=== PATIENT | female | born 1990 | race African-American/Black ===

== ENCOUNTER 2017-08-14 21:11 | Emergency (ER) | payer OTHER ==
--- NOTE | 2017-08-14 21:38 | PDOC ---
Rapid Medical Evaluation Time Seen by Provider: 08/14/17 21:35 Medical Evaluation: Allergies Allergy/AdvReac Type Severity Reaction Status Date / Time azithromycin [From Zithromax] Allergy Severe Hives, Verified 10/19/15 02:06 anaphalyxis promethazine HCl Allergy Severe Verified 10/19/15 02:06 [From Phenergan] meperidine [Meperidine] Allergy Intermediate Itching Verified 10/19/15 02:06 amoxicillin Allergy Verified 10/19/15 02:06 08/14/17 21:35 27 year old female with HTN presenting with cough, congestion, and chest pain today. Reports temp 100.7 earlier today, took Tylenol PM. V/s unremarkable. -Rapid flu -To FT for further evaluation
[2017-08-14 21:47] VITALS: BP 120/73; PULSE 91; TEMP 99.4; BMI 24.3
[2017-08-14] MEDS ORDERED: ACETAMINOPHEN 325 MG TABLET (FP) PO ONE (21:56)
--- NOTE | 2017-08-14 21:56 | PDOC ---
History of Present Illness - General Chief Complaint: Cold Symptoms Stated Complaint: CHEST PAIN/BACK PAIN Time Seen by Provider: 08/14/17 21:35 History Source: Patient - History of Present Illness Timing/Duration: reports: yesterday Associated Symptoms: reports: chest pain/soreness, cough, fever/chills, headache , muscle aches, nasal congestion, nasal drainage. denies: earache, facial pain , shortness of breath, sore throat, wheezing Past History - Past Medical History Allergies/Adverse Reactions: Allergies Allergy/AdvReac Type Severity Reaction Status Date / Time azithromycin [From Zithromax] Allergy Severe Hives, Verified 08/14/17 21:38 anaphalyxis promethazine HCl Allergy Severe Verified 08/14/17 21:38 [From Phenergan] meperidine [Meperidine] Allergy Intermediate Itching Verified 08/14/17 21:38 amoxicillin Allergy Verified 08/14/17 21:38 Home Medications: Ambulatory Orders Oseltamivir Phosphate [Tamiflu] 75 mg PO BID #10 capsule 08/14/17 Asthma: No Cancer: No Cardiac Disorders: No COPD: No Diabetes: No HTN: Yes Seizures: No Thyroid Disease: No - Reproductive History (#): 3 Para: 1 Cervical CA: No Dysfunctional Uterine Bleeding: No Ectopic : No Endometrial CA: No Polycystic Ovaries: No Therapeutic (s) & number: Yes (1) Tubal Ligation: No Spontaneous : 1 - Immunization History Immunization Up to Date: Yes - Suicide/Smoking/Psychosocial Hx Smoking Status: No Smoking History: Never smoked Years of Tobacco Use: 0 Have you smoked in the past 12 months: No Number of Cigarettes Smoked Daily: 0 Cigars Per Day: 0 Information on smoking cessation initiated: No Hx Alcohol Use: No Drug/Substance Use Hx: No Substance Use Type: None Hx Substance Use Treatment: No Review of Systems - Review of Systems Constitutional: Yes: Chills, Fever, Malaise HEENTM: No: Ear Pain, Throat Pain Respiratory: Yes: Cough. No: Shortness of Breath, Wheezing *Physical Exam - Vital Signs Last Vital Signs Temp Pulse Resp BP Pulse Ox 99.4 F 91 H 20 120/73 100 08/14/17 21:38 08/14/17 21:38 08/14/17 21:38 08/14/17 21:38 08/14/17 21:38 - Physical Exam General Appearance: Yes: Appropriately Dressed. No: Apparent Distress HEENT: positive: Normal Voice, TMs Normal, Pharynx Normal, Nasal Congestion Neck: positive: Supple. negative: Lymphadenopathy (R), Lymphadenopathy (L) Respiratory/Chest: positive: Lungs Clear, Normal Breath Sounds. negative: Respiratory Distress Cardiovascular: positive: Regular Rate, S1, S2 Gastrointestinal/Abdominal: positive: Soft. negative: Tender Integumentary: positive: Dry, Warm Neurologic: positive: Fully Oriented, Alert, Normal Mood/Affect Medical Decision Making - Medical Decision Making 08/14/17 21:46 27-year-old female, h/o HTN, presenting with body aches, nasal congestion, fever and chills since yesterday. Patient well-appearing in ED and stable with unremarkable exam. Most likely viral syndrome, rule out influenza. Pain control in ED 08/14/17 21:57 08/14/17 22:32 Rule positive. DC with Tamiflu and supportive treatment *DC/Admit/Observation/Transfer Diagnosis at time of Disposition: Influenza - Discharge Dispostion Disposition: HOME Condition at time of disposition: Good - Prescriptions Prescriptions: Oseltamivir Phosphate [Tamiflu] 75 mg PO BID #10 capsule - Referrals - Patient Instructions Printed Discharge Instructions: Influenza Additional Instructions: You have the flu. Take Tamiflu as directed. Rest, maintain adequate hydration and take Motrin or Tylenol as needed for pain and/or fever - Post Discharge Activity Forms/Work/School Notes: Back to Work
[2017-08-14] MEDS ORDERED: ACETAMINOPHEN 325 MG TABLET (FP) ONE (22:01)
== END 2017-08-14 22:34 | disposition home or self-care (01) ==
LOC: JERFT 21:11
DX: J10.1 Influenza due to other identified influenza virus with other respiratory manifestations (principal)
CPT/HCPCS: 87804; 99281-25

== ENCOUNTER 2018-05-16 01:19 | Emergency (ER) | payer OTHER ==
[2018-05-16 02:21] VITALS: BP 137/87; PULSE 80; TEMP 98.6; BMI 29.1
--- NOTE | 2018-05-16 03:28 | PDOC ---
History of Present Illness - General Stated Complaint: LEFT EAR PAIN Time Seen by Provider: 05/16/18 02:55 History Source: Patient Exam Limitations: No Limitations - History of Present Illness Initial Comments: 28 y/o female presenting to [facility] ER via private auto complaining of left ear pain starting around midnight. Endorses upper respiratory symptoms for past few days including cough and congestion. Attempted relief by inserting hydrogen peroxide. No relief was achieved. Now endorsing pain in left side of jaw tender and behind the left ear. Denies headache, blurry vision, syncope, sore throat, or tasting drainage inside mouth. PCP: [facility] Hx: - HTN, unmedicated Surgical Hx: - Cervical LEEP Past History - Past Medical History Allergies/Adverse Reactions: Allergies Allergy/AdvReac Type Severity Reaction Status Date / Time azithromycin [From Zithromax] Allergy Severe Hives, Verified 08/14/17 21:38 anaphalyxis promethazine HCl Allergy Severe Verified 08/14/17 21:38 [From Phenergan] meperidine [Meperidine] Allergy Intermediate Itching Verified 08/14/17 21:38 amoxicillin Allergy Verified 08/14/17 21:38 Home Medications: Ambulatory Orders Benzonatate [Tessalon Pearls -] 100 mg PO TID PRN #21 capsule 05/16/18 Ipratropium [place] 2 spray NS BID PRN #1 spray 05/16/18 Asthma: No Cancer: No Cardiac Disorders: No COPD: No Diabetes: No HTN: Yes Seizures: No Thyroid Disease: No - Reproductive History (#): 3 Para: 1 Cervical CA: No Dysfunctional Uterine Bleeding: No Ectopic : No Endometrial CA: No Polycystic Ovaries: No Therapeutic (s) & number: Yes (1) Tubal Ligation: No Spontaneous : 1 - Immunization History Immunization Up to Date: Yes - Suicide/Smoking/Psychosocial Hx Smoking Status: No Smoking History: Current some day smoker Years of Tobacco Use: 0 Have you smoked in the past 12 months: No Number of Cigarettes Smoked Daily: 0 Cigars Per Day: 0 Information on smoking cessation initiated: No Hx Alcohol Use: No Drug/Substance Use Hx: No Substance Use Type: None Hx Substance Use Treatment: No Review of Systems - Review of Systems Able to Perform ROS?: Yes Comments:: In addition to that documented in the HPI above, the additional ROS was obtained : Constitutional: Endorses subjective fevers and chills Eyes: Denies vision changes ENMT: Denies sore throat CV: Endorses chest pain to right apical aspect Resp: Denies SOB GI: Denies vomiting or diarrhea *Physical Exam - Vital Signs Last Vital Signs Temp Pulse Resp BP Pulse Ox 98.6 F 80 19 137/87 98 05/16/18 02:11 05/16/18 02:11 05/16/18 02:11 05/16/18 02:11 05/16/18 02:11 - Physical Exam Comments: Constitutional: Well-developed, well-nourished female in no acute distress. Found sitting upright on edge of hospital bed. Alert and oriented x4. Answered all questions appropriately and completely. Speech was non-labored, non- pressured. Head: Normocephalic. No obvious external signs of trauma. Eyes: Sclerae white. Conjunctiva moist and not injected. EARS: Subjectively tender along mastoid process and left jawline without overlying lesions.Left external auditory canal mildly erythematous but not edematous. TM pearly nuñez and not bulging. Pinna not tender. Hearing grossly intact. NOSE: No nasal discharge. THROAT: Oral cavity and pharynx normal. No inflammation, swelling, exudate, or lesions. Teeth and gingiva in good general condition. Cardiovascular: Regular rate and regular rhythm. No murmur, rubs, clicks, or gallops. Peripheral pulses: Radial pulses full. Respiratory: Breathing unlabored. Equal chest rise and fall. Clear to auscultation bilaterally. No stridor, no wheezing, no rhonchi. Neuro: Alert and oriented. Moving all four extremities spontaneously. Skin: Warm, dry, and intact. Psych: Affect: appropriate. Mood: normal. Medical Decision Making - Medical Decision Making *Reviewed vital signs, nursing notes, and prior visit documentation (if available). 28 y/o female complaining of left ear pain, left jaw pain, and pain around left mastoid process. No overlying skin changes. Mild erythema in external canal. Afebrile. Vitals unremarkable for hypotension or tachycardia. D/D includes but not limited to otitis externa, otitis media, mastoiditis, maxillary abscess. Ordered facial CT with concern for possible mastoiditis versus deep space abscess. Pt stated she was not able to stay for CT scan as she had work in a few hours. Requested to leave and return later in the morning after she was able to get her shift covered. Discussed that this would be against medical advice as her workup was not complete. Pt expressed understanding. Prescribed cipro and ciprodex given possibility of otitis externa and mastoiditis. Signed out AMA. Unable to get work shift covered. Will return to ER at 8am. Initially sent RX to [facility], [facility]. Rx changed. *DC/Admit/Observation/Transfer Diagnosis at time of Disposition: Left ear pain - Discharge Dispostion Disposition: AGAINST MEDICAL ADVICE Condition at time of disposition: Unchanged/Unknown Decision to Admit order: No - Referrals Referrals: Ran Chandler MD [Primary Care Provider] - - Patient Instructions Printed Discharge Instructions: DI for Otitis Externa Additional Instructions: You have chosen to leave the emergency department against medical advice. You may have an ear infection or it could be a worse infection. Please return to the ER for additional evaluation after you are able to get your shift covered. I have sent two prescriptions to [facility]. Take as directed on the package insert as directed if you are not able to return to the ER. You should follow up with your primary care doctor within the next 3-4 days. You will need to call to make an appointment. Go to the nearest emergency department immediately if your symptoms worsen. Print Language: ARABIC - Post Discharge Activity
[2018-05-16] MEDS ORDERED: ACETAMINOPHEN 500 MG TABLET (FP) PO ONE (03:34)
[2018-05-16] MEDS ORDERED: ACETAMINOPHEN 325 MG TABLET (FP) ONE (03:49)
[2018-05-16] MEDS ORDERED: CIPROFLOXACIN 500 MG TABLET (RESTRICTED TO ID) PO ONE (04:14)
--- NOTE | 2018-05-16 05:33 | PDOC ---
Attending Attestation - Resident Resident Name: Arjun Teresa - ED Attending Attestation I have performed the following: I have examined & evaluated the patient, The case was reviewed & discussed with the resident, I agree w/resident's findings & plan, Exceptions are as noted - HPI HPI: 05/16/18 05:28 see mdm - Physicial Exam PE: 05/16/18 05:28 see mdm - Medical Decision Making 05/16/18 05:28 28F complaining of L sided earache and fullness, endorses subjective fevers at home but afebrile here external ear canal irritated, red, TM clear, no bulging, no fluid Last L upper molar tender to percussion, no visible abscess TTP over mastoid process but no bulging, erythema dental infection? ascending ent infection? otitis externa? plan was for imaging to risk stratify patient and evalute differential Patient requested to leave before work up was completed
== END 2018-05-16 04:15 | disposition left against medical advice (07) ==
LOC: JER 01:19
DX: H92.02 Otalgia, left ear (principal); F17.210 Nicotine dependence, cigarettes, uncomplicated
CPT/HCPCS: 71046-TC-FY; 99281-25

== ENCOUNTER 2018-05-16 19:46 | Emergency (ER) | payer OTHER ==
[2018-05-16 19:53] VITALS: BP 123/66; PULSE 72; TEMP 98.4; BMI 30.8
--- NOTE | 2018-05-16 21:26 | PDOC ---
History of Present Illness - General Chief Complaint: Ear Problem Stated Complaint: EAR PROBLEM Time Seen by Provider: 05/16/18 21:06 History Source: Patient Exam Limitations: Clinical Condition - History of Present Illness Initial Comments: 05/16/18 21:21 Patient with no significant past medical history presenting with complaint of left ear pain for 3 days which has been persistent. Patient also reported intermittent dry cough, runny nose and pain to upper back with deep breathing. Patient was seen overnight for ear pain but left AMA. Prescription for Ciprodex and Cipro antibiotics was sent to patient pharmacy for ear infection but patient has not picked up prescription. Patient denies any other symptoms Timing/Duration: other (3 days) Past History - Past Medical History Allergies/Adverse Reactions: Allergies Allergy/AdvReac Type Severity Reaction Status Date / Time azithromycin [From Zithromax] Allergy Severe Hives, Verified 08/14/17 21:38 anaphalyxis promethazine HCl Allergy Severe Verified 08/14/17 21:38 [From Phenergan] meperidine [Meperidine] Allergy Intermediate Itching Verified 08/14/17 21:38 amoxicillin Allergy Verified 08/14/17 21:38 Home Medications: Ambulatory Orders Benzonatate [Tessalon Pearls -] 100 mg PO TID PRN #21 capsule 05/16/18 Ipratropium [place] 2 spray NS BID PRN #1 spray 05/16/18 Asthma: No Cancer: No Cardiac Disorders: No COPD: No Diabetes: No HTN: Yes Seizures: No Thyroid Disease: No - Reproductive History (#): 3 Para: 1 Cervical CA: No Dysfunctional Uterine Bleeding: No Ectopic : No Endometrial CA: No Polycystic Ovaries: No Therapeutic (s) & number: Yes (1) Tubal Ligation: No Spontaneous : 1 - Immunization History Immunization Up to Date: Yes - Suicide/Smoking/Psychosocial Hx Smoking Status: No Smoking History: Never smoked Years of Tobacco Use: 0 Have you smoked in the past 12 months: No Number of Cigarettes Smoked Daily: 0 Cigars Per Day: 0 Information on smoking cessation initiated: No Hx Alcohol Use: No Drug/Substance Use Hx: No Substance Use Type: None Hx Substance Use Treatment: No Review of Systems - Review of Systems Able to Perform ROS?: Yes Is the patient limited Khmer proficient: No Constitutional: No: Chills, Fever, Night Sweats HEENTM: Yes: See HPI, Ear Pain (left), Nose Congestion. No: Eye Pain, Blurred Vision, Tearing, Recent change in vision, Double Vision, Cataracts, Ocular Prothesis, Ear Discharge, Nose Pain, Tinnitus, Nose Bleeding, Hearing Loss, Throat Pain, Throat Swelling, Mouth Pain, Dental Problems, Difficulty Swallowing , Mouth Swelling, Other Respiratory: Yes: See HPI, Cough. No: Orthopnea, Shortness of Breath, SOB with Exertion, SOB at Rest, Stridor, Wheezing, Productive cough, Hemoptysis, Other Cardiac (ROS): No: Chest Pain, Edema, Irregular Heart Rate, Lightheadedness, Palpitations, Syncope, Chest Tightness, Other ABD/GI: No: Abdominal Distended, Abd. Pain w/ defecation, Blood Streaked Bowels , Constipated, Diarrhea, Difficulty Swallowing, Nausea, Poor Appetite, Poor Fluid Intake, Rectal Bleeding, Vomiting, Indigestion, Abdominal cramping, Tarry Stools, Other All Other Systems: Reviewed and Negative *Physical Exam - Vital Signs Last Vital Signs Temp Pulse Resp BP Pulse Ox 98.4 F 72 18 123/66 100 05/16/18 19:48 05/16/18 19:48 05/16/18 19:48 05/16/18 19:48 05/16/18 19:48 - Physical Exam Comments: 05/16/18 21:23 GENERAL: Well developed, well nourished. Awake and alert. No acute distress. HEENT: moderate erythema in left ear exteranl canal. right ear canal normal. Normocephalic, atraumatic. PERRLA, EOMI. No conjunctival pallor. Sclera are non- icteric. Moist mucous membranes. Oropharynx is clear. NECK: Supple. Full ROM. CARDIOVASCULAR: Regular rate and rhythm. No murmurs, rubs, or gallops. Distal pulses are 2+ and symmetric. PULMONARY: No evidence of respiratory distress. Lungs clear to auscultation bilaterally. No wheezing, rales or rhonchi. ABDOMINAL: Soft. Non-tender. Non-distended. No rebound or guarding. No organomegaly. Normoactive bowel sounds. MUSCULOSKELETAL Normal range of motion at all joints. EXTREMITIES: No cyanosis. No clubbing. No edema. No calf tenderness. SKIN: Warm and dry. Normal capillary refill. No rashes. No jaundice. NEUROLOGICAL: Alert, awake, appropriate. Gait is normal without ataxia. PSYCHIATRIC: Cooperative. Good eye contact. Appropriate mood General Appearance: Yes: Nourished, Appropriately Dressed. No: Apparent Distress ED Treatment Course - RADIOLOGY Radiology Studies Ordered: Category Date Time Status CHEST PA & LAT [RAD] Stat Radiology 05/16/18 21:12 Ordered Medical Decision Making - Medical Decision Making 05/16/18 21:24 Patient with no significant past medical history of presenting with complaint of left ear pain which has been persistent for 3 days and now with complaint of nonproductive cough with pain with cough and deep breathing. Clinical exam significant for moderate erythema to left ear canal. Lungs clear to auscultation bilateral and heart exam normal. Chest x-ray ordered. Treat based on chest x-ray results 05/16/18 21:44 CXR negative for acute infiltrate. patient stable for discharge on tessalon perles for cough. prescription for ciprodex and oral cipro Abx already sent in for patient from previous visit *DC/Admit/Observation/Transfer Diagnosis at time of Disposition: Cough Left otitis externa Qualifiers: Otitis externa type: unspecified type Chronicity: acute Qualified Code(s): H60.502 - Unspecified acute noninfective otitis externa, left ear URI (upper respiratory infection) Qualifiers: URI type: unspecified URI Qualified Code(s): J06.9 - Acute upper respiratory infection, unspecified - Discharge Dispostion Disposition: HOME Condition at time of disposition: Stable Decision to Admit order: No - Prescriptions Prescriptions: Benzonatate [Tessalon Pearls -] 100 mg PO TID PRN #21 capsule PRN Reason: Cough Ipratropium [place] 2 spray NS BID PRN #1 spray PRN Reason: nasal congestion - Referrals Referrals: Giovanni Sparks MD [Staff Physician] - - Patient Instructions Printed Discharge Instructions: DI for Otitis Externa Additional Instructions: Your chest x-ray was normal. Take prescribed medication as needed for cough. There previously prescribed medication for ear infection. Follow-up referred to ENT for reassessment in 4-5 days if symptoms persist - Post Discharge Activity
== END 2018-05-16 21:49 | disposition home or self-care (01) ==
LOC: JERFT 19:46
DX: H60.502 Unspecified acute noninfective otitis externa, left ear (principal); J06.9 Acute upper respiratory infection, unspecified
CPT/HCPCS: 71046-TC-FY; 99281-25

== ENCOUNTER 2019-03-21 08:43 | Emergency (ER) | payer OTHER ==
[2019-03-21 08:50] VITALS: BP 120/74; PULSE 113; TEMP 99.7; BMI 28.5
--- NOTE | 2019-03-21 08:57 | PDOC ---
History of Present Illness - General Chief Complaint: Sore Throat Stated Complaint: THROAT PAIN Time Seen by Provider: 03/21/19 08:55 History Source: Patient Exam Limitations: No Limitations Past History - Travel Traveled outside of the country in the last 30 days: No Close contact w/someone who was outside of country & ill: No - Past Medical History Allergies/Adverse Reactions: Allergies Allergy/AdvReac Type Severity Reaction Status Date / Time azithromycin [From Zithromax] Allergy Severe Hives, Verified 03/21/19 08:47 anaphalyxis promethazine HCl Allergy Severe Verified 03/21/19 08:47 [From Phenergan] meperidine [Meperidine] Allergy Intermediate Itching Verified 03/21/19 08:47 amoxicillin Allergy Verified 03/21/19 08:47 Home Medications: Ambulatory Orders Benzonatate [Tessalon Pearls -] 100 mg PO TID PRN #21 capsule 05/16/18 Ipratropium [place] 2 spray NS BID PRN #1 spray 05/16/18 Clindamycin [Cleocin -] 300 mg PO TID #21 capsule 03/21/19 Ibuprofen Oral Suspension [Motrin Oral Suspension -] 600 mg PO Q6H #400 ml 03/21 Asthma: No Cancer: No Cardiac Disorders: No COPD: No Diabetes: No HTN: Yes Seizures: No Thyroid Disease: No - Reproductive History (#): 3 Para: 1 Cervical CA: No Dysfunctional Uterine Bleeding: No Ectopic : No Endometrial CA: No Polycystic Ovaries: No Therapeutic (s) & number: Yes (1) Tubal Ligation: No Spontaneous : 1 - Immunization History Immunization Up to Date: Yes - Suicide/Smoking/Psychosocial Hx Smoking Status: No Smoking History: Current some day smoker Years of Tobacco Use: 0 Have you smoked in the past 12 months: No Number of Cigarettes Smoked Daily: 0 Cigars Per Day: 0 Information on smoking cessation initiated: No Hx Alcohol Use: No Drug/Substance Use Hx: No Substance Use Type: None Hx Substance Use Treatment: No Review of Systems - Review of Systems Able to Perform ROS?: Yes Comments:: 03/21/19 08:57 CONSTITUTIONAL: Absent: fever, chills, diaphoresis, generalized weakness, malaise, loss of appetite HEENT: Present: throat pain Absent: rhinorrhea, nasal congestion, throat swelling, difficulty swallowing, mouth swelling, ear pain, eye pain, visual Changes CARDIOVASCULAR: Absent: chest pain, loss of consciousness, palpitations, irregular heart rate, peripheral edema RESPIRATORY: Absent: cough, shortness of breath, dyspnea with exertion, orthopnea, wheezing, stridor, hemoptysis GASTROINTESTINAL: Absent: abdominal pain, abdominal distension, nausea, vomiting, diarrhea, constipation, melena, hematochezia GENITOURINARY: Absent: dysuria, frequency, urgency, hesitancy, hematuria, flank pain, genital pain MUSCULOSKELETAL: Absent: myalgia, arthralgia, joint swelling SKIN: Absent: rash, itching, pallor HEMATOLOGIC/IMMUNOLOGIC: Absent: easy bleeding, easy bruising, lymphadenopathy, frequent infections ENDOCRINE: Absent: unexplained weight gain, unexplained weight loss, heat intolerance, cold intolerance NEUROLOGIC: Absent: headache, focal weakness or paresthesias, dizziness, unsteady gait, seizure, mental status changes, bladder or bowel incontinence PSYCHIATRIC: Absent: anxiety, depression, suicidal or homicidal ideation, hallucinations. Is the patient limited Armenian proficient: No *Physical Exam - Vital Signs Last Vital Signs Temp Pulse Resp BP Pulse Ox 99.7 F H 113 H 16 120/74 99 03/21/19 08:45 03/21/19 08:45 03/21/19 08:45 03/21/19 08:45 03/21/19 08:45 - Physical Exam Comments: 03/21/19 08:57 GENERAL: Well developed, well nourished. Awake and alert. No acute distress. HEENT: Normocephalic, atraumatic. PERRLA, EOMI. No conjunctival pallor. Sclera are non- icteric. Moist mucous membranes. Oropharynx is erythematous with exudate and 2+ tonsils. Uvula is midline. NECK: Supple. Full ROM. No JVD. Carotid pulses 2+ and symmetric, without bruits. No thyromegaly. No lymphadenopathy. PULMONARY: No evidence of respiratory distress. Lungs clear to auscultation bilaterally. No wheezing, rales or rhonchi. SKIN: Warm and dry. Normal capillary refill. No rashes. No jaundice. NEUROLOGICAL: Alert, awake, appropriate. Cranial nerves 2-12 intact. No deficits to light touch and temperature in face, upper extremities and lower extremities. No motor deficits in the in face, upper extremities and lower extremities. Normoreflexic in the upper and lower extremities. Normal speech. Toes are down- going bilaterally. Gait is normal without ataxia. PSYCHIATRIC: Cooperative. Good eye contact. Appropriate mood and affect. Medical Decision Making - Medical Decision Making 03/21/19 09:06 The patient is a 29 y/o F with no PMH who presents to the ER for two days of sore throat. She states it is difficult to swallow. Admits to fevers and associated ear ache at home. She has not taken any medication for the pain or reported fever. Denies cough, wheezing, SOB, n/v/d. A/P: Sore throat Rapid strep ordered Tonsils 2+, erythematous with exudate. Uvula midline, swallowing her own secretions Steroids and ibuprofen Re-eval *DC/Admit/Observation/Transfer Diagnosis at time of Disposition: Strep pharyngitis - Discharge Dispostion Disposition: HOME Condition at time of disposition: Stable Decision to Admit order: No - Referrals Referrals: Ran Chandler MD [Primary Care Provider] - - Patient Instructions Printed Discharge Instructions: DI for Strep Throat Additional Instructions: You have strep throat. This is a bacterial infection. Please take the Cleocin 300m three a day for one week. Please finish the prescription even if you feel better. (if you develop hives, or difficulty breathing, stop taking the medication immediately and get evaluated by a medical provider) You may take Motrin 800 mg every 8 hours as needed for pain or fever. Warm water gargles and cough drops and just may also help her symptoms. Please throw way your toothbrush 3 days into treatment to prevent reinfection. Please follow up with your primary care doctor next week. Return to emergency department if you have worsening pain, difficulty swallowing , changes in your voice, lightheadedness, dizziness, or any changes in your symptoms. - Post Discharge Activity Forms/Work/School Notes: Back to Work
[2019-03-21] MEDS ORDERED: DEXAMETHASONE LIQUID 0.5 MG/5 ML PO ONE (09:05)
[2019-03-21] MEDS ORDERED: IBUPROFEN 100 MG/5 ML UNIT DOSE CUPS PO ONE (09:05)
[2019-03-21] MEDS ORDERED: DEXAMETHASONE SOD PHOSPHATE 10 MG/1 ML VIAL ONE (09:10)
[2019-03-21] MEDS ORDERED: IBUPROFEN 100 MG/5 ML UNIT DOSE CUPS ONE (09:10)
== END 2019-03-21 09:45 | disposition home or self-care (01) ==
LOC: JERFT 08:43
DX: J02.0 Streptococcal pharyngitis (principal); I10 Essential (primary) hypertension; F17.210 Nicotine dependence, cigarettes, uncomplicated
CPT/HCPCS: 87880; 99281-25

== ENCOUNTER 2019-05-16 14:05 | Emergency (ER) | payer OTHER ==
[2019-05-16 14:11] VITALS: BP 120/66; PULSE 67; TEMP 98; BMI 28.3
[2019-05-16] MEDS ORDERED: ACETAMINOPHEN 325 MG TABLET (FP) PO ONE (14:14)
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
[2019-05-16] MEDS ORDERED: MECLIZINE HCL 25 MG TABLET (FP) PO ONE (15:15)
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
[2019-05-16] MEDS ORDERED: MECLIZINE HCL 12.5 MG TABLET ONE (15:16)
[2019-05-16] MEDS ORDERED: ACETAMINOPHEN 325 MG TABLET (FP) ONE (15:17)
[2019-05-16] MEDS ORDERED: ONDANSETRON *ODT* 4 MG TABLET SL ONE (15:24)
[2019-05-16] MEDS ORDERED: ONDANSETRON *ODT* 4 MG TABLET ONE (15:29)
== END 2019-05-16 16:01 | disposition home or self-care (01) ==
LOC: JERFT 14:05
DX: T59.891A Toxic effect of other specified gases, fumes and vapors, accidental (unintentional), initial encounter (principal); R51 Headache; R11.0 Nausea; Y92.038 Other place in apartment as the place of occurrence of the external cause; Z88.0 Allergy status to penicillin; Z88.1 Allergy status to other antibiotic agents; Z88.8 Allergy status to other drugs, medicaments and biological substances
CPT/HCPCS: 84703; 99281-25; Q0162

== ENCOUNTER 2021-06-07 17:52 | Emergency (ER) | payer OTHER ==
[2021-06-07 18:11] VITALS: BP 121/71; PULSE 97; TEMP 97.8; BMI 27.2
[2021-06-07 20:40] LABS: EPI CELLS >36 /uL (0-25.1); HYALINE CASTS 8 /uL (0-3.1); URINE APPEARANCE CLOUDY; URINE BACTERIA 1976 /uL (0-1359); URINE BILIRUBIN NEGATIVE (NEGATIVE); URINE COLOR YELLOW; URINE GLUCOSE (UA) NEGATIVE (NEGATIVE); URINE KETONE TRACE (NEGATIVE); URINE LEUK ESTERASE NEGATIVE (NEGATIVE); URINE NITRITE NEGATIVE (NEGATIVE); URINE PROTEIN 1+ (NEGATIVE); URINE UROBILINOGEN 0.2 mg/dL (0.2-1.0)
[2021-06-07 20:42] LABS: HCG,QUALITATIVE URINE Negative
[2021-06-07 21:19] LABS: URINE RBC 62.3 /uL (0-23.9); URINE WBC 57.1 /uL (0-25.8)
== END 2021-06-07 21:47 | disposition home or self-care (01) ==
LOC: JER 17:52
DX: J09.X2 Influenza due to identified novel influenza A virus with other respiratory manifestations (principal); Z11.52 Encounter for screening for COVID-19
CPT/HCPCS: 71046-TC-FY; 81003; 84703; 87086; 87804; 99284-25; C9803; U0003; U0005

== ENCOUNTER 2023-05-27 05:17 | Emergency (ER) | payer OTHER ==
[2023-05-27 05:30] VITALS: BP 122/70; PULSE 77; RESP 20; TEMP 98; BMI 27.3
[2023-05-27] MEDS ORDERED: LIDOCAINE 5% TOPICAL PATCH TP ONE (05:58)
[2023-05-27] MEDS ORDERED: METHOCARBAMOL 500 MG TABLET PO ONE (05:58)
[2023-05-27] MEDS ORDERED: KETOROLAC TROMETHAMINE 15 MG/ML VIAL IM ONE (05:58)
[2023-05-27] MEDS ORDERED: METHOCARBAMOL 500 MG TABLET ONE (05:59)
[2023-05-27] MEDS ORDERED: LIDOCAINE 4% PATCH TP ONE (06:00)
[2023-05-27] MEDS ORDERED: KETOROLAC TROMETHAMINE 15 MG/ML VIAL ONE (06:00)
[2023-05-27 06:43] LABS: PH,URINE 6.5 (5.0-8.0); URINE APPEARANCE CLEAR; URINE BILIRUBIN NEGATIVE (NEGATIVE); URINE COLOR YELLOW; URINE GLUCOSE (UA) NEGATIVE (NEGATIVE); URINE KETONE NEGATIVE (NEGATIVE); URINE LEUK ESTERASE NEGATIVE (NEGATIVE); URINE NITRITE NEGATIVE (NEGATIVE); URINE PROTEIN TRACE (NEGATIVE)
[2023-05-27] MEDS ORDERED: LIDOCAINE PATCH REMOVAL MC ONE (18:00)
== END 2023-05-27 06:55 | disposition home or self-care (01) ==
LOC: JER 05:17
PROC: 3E0233Z Introduction of Anti-inflammatory into Muscle, Percutaneous Approach (ICD-10-PCS; principal; 2023-05-27)
DX: M54.50 Low back pain, unspecified (principal); G89.29 Other chronic pain; M79.602 Pain in left arm; X58.XXXA Exposure to other specified factors, initial encounter
CPT/HCPCS: 81003; 84703; 87086; 99284-25

== ENCOUNTER 2024-01-24 10:37 | Emergency (ER) | payer OTHER ==
[2024-01-24 10:44] VITALS: BP 124/81; PULSE 81; RESP 18; TEMP 98.4; BMI 24.7
[2024-01-24] MEDS ORDERED: KETOROLAC TROMETHAMINE 30 MG/1 ML VIAL ONE (11:30)
[2024-01-24] MEDS ORDERED: cloNIDine HCL 0.1 MG TABLET ONE (11:30)
[2024-01-24] MEDS: cloNIDine HCL 0.1 MG TABLET PO ONE (11:41)
[2024-01-24] MEDS: KETOROLAC TROMETHAMINE 30 MG/1 ML VIAL IM ONE (11:41)
== END 2024-01-24 11:42 | disposition home or self-care (01) ==
LOC: JERFT 10:37
PROC: 3E0233Z Introduction of Anti-inflammatory into Muscle, Percutaneous Approach (ICD-10-PCS; principal; 2024-01-24)
DX: M79.602 Pain in left arm (principal); G89.29 Other chronic pain
CPT/HCPCS: 99284-25